=== PATIENT | female | born 1965 | race Caucasian/White ===

== ENCOUNTER → 2022-11-16 | Day surgery (SDC) | payer OTHER ==
[2022-11-16] VITALS (7 sets, daily range): BP systolic 103–114; BP diastolic 53–71
[~2022-11-16] VITALS: Ht 157.4 cm; Wt 61.2 kg
[~2022-11-16] MED LIST: CLARITIN10 MG PO; CYMBALTA60 MG PO; OFLOXACIN OTIC5 ML OT
== END | disposition home or self-care (01) ==
LOC: SDC 11-12 12:30
PROVIDERS: ATTEND Specialist
DX: H65.491 Other chronic nonsuppurative otitis media, right ear (principal); H69.81 Other specified disorders of Eustachian tube, right ear; M19.90 Unspecified osteoarthritis, unspecified site; J43.9 Emphysema, unspecified; F17.210 Nicotine dependence, cigarettes, uncomplicated

== ENCOUNTER → 2023-03-17 | Outpatient (CLI) | payer OTHER ==
[2023-03-17 17:15] LABS: BF LYMPHOCYTES 24 %; BF MONOCYTES 63 %; BF NEUTROPHILS 13 %
[2023-03-18 10:07] LABS: ACID FAST SPEC PROCESSING Direct Inoculation (.)
== END | disposition home or self-care (01) ==
LOC: LAB 15:21
PROVIDERS: ATTEND Orthopaedic Surgery
DX: M25.421 Effusion, right elbow (principal)